=== PATIENT | female | born 1965 | race Caucasian/White ===

== ENCOUNTER 2017-09-18 09:46 | Emergency (ER) | payer OTHER ==
[~2017-09-18] VITALS: Ht 157.5 cm; Wt 52.2 kg
[2017-09-18] MEDS ORDERED: ALBUTEROL/IPRATROPIUM 3 ML NEB NEB ONE (10:30)
[2017-09-18] MEDS ORDERED: LORAZEPAM 1 MG TAB PO ONE (11:15)
== END 2017-09-18 12:27 | disposition home or self-care (01) ==
LOC: FSED 09:46
DX: R06.00 Dyspnea, unspecified (principal); R05 Cough; J44.9 Chronic obstructive pulmonary disease, unspecified; Z87.891 Personal history of nicotine dependence
CPT/HCPCS: 71046; 83880; 85025; 85379; 93005; 99284

== ENCOUNTER → 2017-10-26 | Outpatient (CLI) | payer OTHER ==
--- NOTE | 2017-10-27 10:42 | Cardiology Report ---
DATE OF STUDY: October 26, 2017 ECHOCARDIOGRAM M-MODE: Normal chamber wall dimensions. Normal contractility. Normal mitral and aortic valves. No pericardial effusion. SECTOR SCAN: Normal chamber wall dimensions. Normal contractility. Normal mitral, aortic and tricuspid valves. No pericardial effusion. CARDIAC DOPPLER STUDY WITH COLOR: Trace mitral and tricuspid regurgitation. CONCLUSIONS 1. Left ventricular ejection fraction is approximately 65%. 2. Trace mitral and tricuspid regurgitation. 3. No significant pulmonary hypertension with pulmonary artery systolic pressure estimated at 34 mmHg. Job#: [id number] cc:STACIE ELIZALDE MD
== END ==
LOC: RAD 15:00
PROVIDERS: ATTEND Internal Medicine
DX: R06.00 Dyspnea, unspecified (principal)
CPT/HCPCS: 93306

== ENCOUNTER 2018-09-13 20:40 | Emergency (ER) | payer OTHER ==
[~2018-09-13] VITALS: Ht 157.5 cm; Wt 51.9 kg
--- OUTSIDE RECORDS SUMMARY | 2018-09-13 20:43 | XMS REPORT ---
Author Author [facility] Address Unknown Phone Unavailable Care Team Providers Care Production Line Technician Name Role Phone STACIE ELIZALDE Unavailable Unavailable Problems This patient has no known problems. Allergies, Adverse Reactions, Alerts This patient has no known allergies or adverse reactions. Medications This patient has no known medications. Results Test Description Test Time Test Comments Text Results Atomic Results Result Comments ECHO COMPLETE (ECHOCARDIOGRAM) 2017-10-27 10:21:00 [facility] [address] [address] Patient Name : CHAKA BADILLO MR #: [id number] : 1965 Age/Sex: 52/F Adm Physician : STACIE ELIZALDE MD Admit Date : Location : [facility] Room/Bed : REPORT: Cardiology Report DATE OF STUDY: October 26, 2017 ECHOCARDIOGRAM M-MODE: Normal chamber wall dimensions. Normal contractility. Normal mitral and aortic valves. No pericardial effusion. SECTOR SCAN: Normal chamber wall dimensions. Normal contractility. Normal mitral, aortic and tricuspid valves. No pericardial effusion. CARDIAC DOPPLER STUDY WITH COLOR: Trace mitral and tricuspid regurgitation. CONCLUSIONS 1. Left ventricular ejection fraction is approximately 65%. 2. Trace mitral and tricuspid regurgitation. 3. No significant pulmonary hypertension with pulmonary artery systolic pressure estimated at 34 mmHg. Job#: [id number] cc: STACIE ELIZALDE MD Signature Date Dictated By: MELANIE LUCIO MD Transcribed By: ALBERTO on 10/27/17 <Electronically signed by MELANIE LUCIO MD><<Signature on File>>10/30/17 0921 COPY TO:
[2018-09-13] MEDS ORDERED: KETOROLAC TROMETHAMINE 60 MG/2 ML VIAL IM ONE (21:15)
[2018-09-13] MEDS ORDERED: KETOROLAC TROMETHAMINE 60 MG/2 ML VIAL ONE (21:17)
--- NOTE | 2018-09-13 21:32 | Diagnostic Imaging Report ---
WRIST 3VW LT - HOPD - 3 views HISTORY: Pain COMPARISON: None available. FINDINGS: See impression. IMPRESSION: Distal radial metaphyseal fracture with mild dorsal angulation. Nondisplaced ulnar styloid process fracture. Generalized demineralization. Signed by: Dr. Willi Denson MD on 09/13/2018 9:29 PM
--- NOTE | 2018-09-13 21:34 | NUR ---
wedding ring removed and given to patients spouse.
[2018-09-13] MEDS ORDERED: ONDANSETRON HCL 4 MG ORAL DISINTEGRATING TAB PO ONE (21:45)
[2018-09-13] MEDS ORDERED: MORPHINE SULFATE INJ 4 MG/ML INJ 1ML IM PRN (21:45)
[2018-09-13] MEDS ORDERED: HYDROCODONE/APAP 5MG-325MG TAB ONE (21:58)
[2018-09-13] MEDS ORDERED: HYDROCODONE/APAP 7.5MG-325MG 1 EA TAB PO PRN (22:00)
[2018-09-13] MEDS ORDERED: HYDROCODONE/APAP 10MG-325MG TAB PO ONE (22:00)
[2018-09-13 22:08] VITALS: BP 126/82
[2018-10-01] MEDS ORDERED: MULTI-VITAMIN1 EACH PO (11:33)
[2018-10-01] MEDS ORDERED: ALEVE220 MG PO (11:33)
[2018-10-01] MEDS ORDERED: VITAMIN D1000 UNI1 PO (11:33)
== END 2018-09-13 22:33 | disposition home or self-care (01) ==
LOC: FSED 20:40
DX: S52.335A Nondisplaced oblique fracture of shaft of left radius, initial encounter for closed fracture (principal); S52.615A Nondisplaced fracture of left ulna styloid process, initial encounter for closed fracture; S64.12XA Injury of median nerve at wrist and hand level of left arm, initial encounter; S64.495A Injury of digital nerve of left ring finger, initial encounter; S64.497A Injury of digital nerve of left little finger, initial encounter; W01.0XXA Fall on same level from slipping, tripping and stumbling without subsequent striking against object, initial encounter; Y93.51 Activity, roller skating (inline) and skateboarding; Y92.331 Roller skating rink as the place of occurrence of the external cause
CPT/HCPCS: 25605; 73110; 99283; J1885; Q0162

== ENCOUNTER → 2018-10-03 | Day surgery (SDC) | payer OTHER ==
--- NOTE | 2018-10-01 13:56 | Diagnostic Imaging Report ---
EXAMINATION: CHEST 2 VIEWS INDICATION: Pre-operative COMPARISON: None FINDINGS: LINES/TUBES:None LUNGS:The lungs are well-inflated. No focal consolidation or pulmonary edema. PLEURA:No pleural effusion or pneumothorax. MEDIASTINUM:The cardiomediastinal silhouette appears normal in size and shape. BONES/SOFT TISSUES:No acute osseous injury. ABDOMEN:No free air under the diaphragm. IMPRESSION: No focal pneumonia or pulmonary edema. Signed by: Minerva Garza MD on 10/01/2018 1:52 PM
[~2018-10-03] MED LIST: ALEVE220 MG PO; BACITRACIN 50,000 UNIT VIAL ONE; BUPIVACAINE HCL 0.5% INJ 30 ML VIAL INJ ONE; CEFAZOLIN SOD 1 GM/NS 50ML 100 ML IV ONE; DEXAMETHASONE SOD PHOS INJ 4 MG/ML VIAL ONE; FENTANYL CITRATE/PF 100MCG/2 ML INJ ONE; HYDROMORPHONE 2MG/ML 2 MG/ML ML ONE; KETOROLAC TROMETHAMINE 30 MG/ML VIAL ONE; LIDOCAINE HCL 2% LOCAL INJ 5 ML SDV VIAL INJ ONE; METOCLOPRAMIDE HCL 10 MG/2ML VIAL ONE; MIDAZOLAM HCL 2 MG/2 ML VIAL ONE; MULTI-VITAMIN1 EACH PO; ONDANSETRON HCL INJ 2MG/ML 2ML 2 MG/ML VIAL ONE; PROPOFOL IV EMULSION 10 MG/ML 20 ML VIAL ONE; SEVOFLURANE INHAL SOLN 250 ML PEN BTL ONE; VITAMIN D1000 UNI1 PO
--- NOTE | 2018-10-03 14:29 | NUR ---
OPERATIVE NOTE ORTHOPEDICS. PREOPERATIVE DIAGNOSIS: LEFT Displaced distal radius POSTOPERATIVE DIAGNOSIS: LEFT Displaced distal radius OPERATIONS PERFORMED: Open reduction and internal fixation of LEFT distal radius SURGEON: Idalia Carmona DO ANESTHESIA: General EBL: 10 cc TOURNIQUET TIME: 72 MIN COMPLICATIONS: None. COMPONENTS: Ronn Variax Distal Radius Plate - Left 3 hole narrow, 6 2.7 Locking Screws, 2 2.7 Cortical Screws CLINICAL SUMMARY: The patient is a 53-year-old right-hand dominant female who sustained a mechanical fall resulting in a fracture to the left distal radius and ulna. During non-operative follow up, it was noted that the wrist was healing in more dorsal angulation. OPERATION: The patient was brought to the operating table and placed in supine position and administered general anesthetic by the anesthesia. Preoperative antibiotics were provided. Once adequate anesthesia had been obtained, the LEFT upper extremity was prepped and draped in the usual sterile manner. The pat ient received preoperative antibiotics. Tourniquet was placed around the right upper extremity. The upper extremity was then elevated and exsanguinated using an Esmarch dressing. The tourniquet was elevated to 250 mmHg. The entire operation was performed with loop magnification. At this time an approximately 8 cm longitudinal incision was then made overlying the right flexor carpi radialis tendon from the flexion crease to the wrist proximally with a 45 degree radially directed incision distally. This was carried down to the flexor carpi radialis, which was then retracted ulnarly. The floor of the flexor carpi radialis sheath was then incised exposing the flexor pronator muscles. The flexor pollicis longus was retracted ulnarly and the remnants of the pronator quadratus was longitudinally incised 1 cm from its origin. It was then elevated off of the fracture site exposing the fracture site, which was dorsally displaced. This was an extra-articular fracture. Under image control, the fracture was recreated and carefully manipulated and reduced. The fracture ends were copiously irrigated with normal saline and curetted and then the fracture was reduced in the usual fashion by recreating the defect and distracting it. The above implants were then fashioned over and placed over the distal radius and secured with 4 K-wires. The distal portion of the fracture was first secured and the proximal portion was then secured allowing the fracture to reduce with the plate pulling the fracture out of dorsal angulation. Care was used to avoid intraarticular penetration while maintaining subchondral support which was verified via flouroscopy. Images were obtained and interpreted by me demonstrating adequate reduction of the fragments and the fracture with hardware in appropriate alignment. The incision was thoroughly irrigated and homeostasis was maintained with electrocautery. The volar carpal ligaments were repaired and the remnants of the pronator quadratus were repair. The subcut aneous tissue was closed with a 2-0 vicryl and the skin was closed with a 3-0 monocryl. The skin was cleaned and steristrips with xeroform were placed over the incision. Through the use of an angiocatch, 10 cc of local anesthetic was placed within the incision. 4x4, Cling were used and a short arm was placed over the arm. The patient was then placed in a sling. The tourniquet was let down at 204 minutes. The fingers were immediately pink. The patient was awakened and taken to the recovery room in good condition. There were no operative complications. The patient tolerated the procedure well. Post operatively, the patient was examined and found to be neurovascularly intact.
[2018-10-03 17:00] VITALS: BP 136/70
== END | disposition home or self-care (01) ==
LOC: OR 11:21
PROVIDERS: ATTEND Orthopaedic Surgery
DX: S52.552A Other extraarticular fracture of lower end of left radius, initial encounter for closed fracture (principal); I49.8 Other specified cardiac arrhythmias; X58.XXXA Exposure to other specified factors, initial encounter; Z88.2 Allergy status to sulfonamides; Z88.8 Allergy status to other drugs, medicaments and biological substances; Z01.810 Encounter for preprocedural cardiovascular examination; Z01.818 Encounter for other preprocedural examination; Z87.891 Personal history of nicotine dependence
CPT/HCPCS: 25607; 71046; 93005; C1713 ×5; J0690; J1100; J1170; J1885; J2001; J2250; J2405; J2704; J2765; J3010

== ENCOUNTER → 2018-11-19 | Outpatient (RCR) | payer OTHER ==
[~2018-11-19] MED LIST changes: -BACITRACIN 50,000 UNIT VIAL ONE; -BUPIVACAINE HCL 0.5% INJ 30 ML VIAL INJ ONE; -CEFAZOLIN SOD 1 GM/NS 50ML 100 ML IV ONE; -DEXAMETHASONE SOD PHOS INJ 4 MG/ML VIAL ONE; -FENTANYL CITRATE/PF 100MCG/2 ML INJ ONE; -HYDROMORPHONE 2MG/ML 2 MG/ML ML ONE; -KETOROLAC TROMETHAMINE 30 MG/ML VIAL ONE; -LIDOCAINE HCL 2% LOCAL INJ 5 ML SDV VIAL INJ ONE; -METOCLOPRAMIDE HCL 10 MG/2ML VIAL ONE; -MIDAZOLAM HCL 2 MG/2 ML VIAL ONE; -ONDANSETRON HCL INJ 2MG/ML 2ML 2 MG/ML VIAL ONE; -PROPOFOL IV EMULSION 10 MG/ML 20 ML VIAL ONE; -SEVOFLURANE INHAL SOLN 250 ML PEN BTL ONE
== END ==
LOC: OT 10-26 10:02
PROVIDERS: ATTEND Orthopaedic Surgery
DX: S52.502D Unspecified fracture of the lower end of left radius, subsequent encounter for closed fracture with routine healing (principal); M25.532 Pain in left wrist; M25.632 Stiffness of left wrist, not elsewhere classified; M25.642 Stiffness of left hand, not elsewhere classified; R53.1 Weakness

== ENCOUNTER 2018-12-10 12:56 | Outpatient (RCR) | payer OTHER | END 2018-12-20 | LOC: OT 12:56 | PROVIDERS: ATTEND Orthopaedic Surgery | DX: S52.502D Unspecified fracture of the lower end of left radius, subsequent encounter for closed fracture with routine healing (principal); M25.532 Pain in left wrist; M25.642 Stiffness of left hand, not elsewhere classified; M25.632 Stiffness of left wrist, not elsewhere classified; R53.1 Weakness ==

== ENCOUNTER 2019-01-14 09:00 | Outpatient (RCR) | payer OTHER | END 2019-01-19 | LOC: OT 09:00 | PROVIDERS: ATTEND Orthopaedic Surgery | DX: S52.592A Other fractures of lower end of left radius, initial encounter for closed fracture (principal) | CPT/HCPCS: 97139 ==

== ENCOUNTER 2019-12-20 13:48 | Emergency (ER) | payer OTHER ==
[~2019-12-20] VITALS: Ht 157.5 cm; Wt 56.7 kg
[2019-12-20] MEDS ORDERED: HYDROCODONE/APAP 5MG-325MG TAB ONE (15:07)
[2019-12-20] MEDS ORDERED: KETOROLAC TROMETHAMINE 60 MG/2 ML VIAL ONE (15:07)
[2019-12-20] MEDS ORDERED: KETOROLAC TROMETHAMINE 60 MG/2 ML VIAL IM ONE (15:15)
[2019-12-20] MEDS ORDERED: HYDROCODONE/APAP 5MG-325MG TAB PO ONE ×2 (15:15→15:45)
--- NOTE | 2019-12-20 16:27 | Diagnostic Imaging Report ---
Right ankle, 3 views. Right calcaneus, 2 views. History: Pain after trauma. Findings: There is mild lateral soft tissue swelling. Bone mineralization is normal. There is no evidence of fracture or dislocation. There are no lytic or sclerotic lesions. The joint spaces are within normal limits. IMPRESSION: Lateral soft tissue swelling without evidence of acute osseous abnormality. Signed by: Keshawn Romero on 12/20/2019 4:24 PM
[2019-12-20] MEDS ORDERED: PREDNISONE20 MG PO (16:40)
--- NOTE | 2019-12-20 16:41 | Emergency Department Note ---
History of Present Illnes History of Present Illness Chief Complaint: rgt ankle/heel pain s/p kicking a fence History of Present Illness This is a 54 year old female . was doing well prior to this. 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 History limited by: condition of the patient (normal) Pulp Grinder Required: No Onset (how long ago): hour(s) (3) Location: see above Quality: sharp Radiation: Reports non-radiation Severity: severe Onset quality: sudden Duration (how long): hour(s) (3) Timing of current episode: constant Progression: worsening Chronicity: new Context: Reports trauma/injury; Denies recent illness Relieving factors: none Exacerbating factors: movement Associated symptoms: Reports denies other symptoms Treatments prior to arrival: none Past Medical/Family History Physician Review I have reviewed the patient's past medical and family history. Any updates have been documented here. Past Medical History Recent Fever: No Clinical Suspicion of Infectio: No New/Unexplained Change in Ment: No Past Medical History: None Past Surgical History: T&A Other Surgery: left wrist surgery novasure ablation Social History Smoking Cessation: Former smoker Counseling Performed: No Alcohol Use: Occasional Any Illegal Drug Use: No Physically hurt or threatened: No Other Last Tetanus: unknown Any Pre-Existing Lines (PICC,: No Review of Systems Review of Systems Constitutional: Reports no symptoms EENTM: Reports no symptoms Cardiovascular: Reports no symptoms Respiratory: Reports no symptoms Gastrointestinal: Reports no symptoms Genitourinary: Reports no symptoms Musculoskeletal: Reports as per HPI Integumentary: Reports no symptoms Neurological: Reports no symptoms Psychological: Reports no symptoms Endocrine: Reports no symptoms Hematological/Lymphatic: Reports no symptoms Review of other systems: All other systems negative Physical Exam Related Data Allergies: Coded Allergies: Sulfa (Sulfonamide Antibiotics) (Verified Allergy, Unknown, N/V, 09/18/17) progesterone (Verified Allergy, Unknown, "autistic state", 09/18/17) Uncoded Allergies: STATINS (Allergy, Severe, UTI'S, LEG MUSCLES WEAKNESS, 10/01/18) Triage Vital Signs Vital Signs Date Time Temp Pulse Resp B/P (MAP) Pulse Ox O2 Delivery O2 Flow Rate FiO2 12/20/19 14:15 98.6 68 18 145/88 100 Room Air Vital signs reviewed: Yes Physical Exam CONSTITUTIONAL Constitutional: Present well-developed, Present well-nourished HENT HENT: Present normocephalic, Present atraumatic, Present oropharynx clear/m oist, Present nose normal HENT L/R: Present left ext ear normal, Present right ext ear normal EYES Eyes: Reports PERRL, Reports conjunctivae normal NECK Neck: Present ROM normal PULMONARY Pulmonary: Present effort normal, Present breath sounds normal CARDIOVASCULAR Cardiovascular: Present regular rhythm, Present heart sounds normal, Present capillary refill normal, Present normal rate GASTROINTESTINAL Abdominal: Present soft, Present nontender, Present bowel sounds normal GENITOURINARY Genitourinary: Present exam deferred SKIN Skin: Present warm, Present dry MUSCULOSKELETAL Musculoskeletal: Present ROM normal, Present tenderness (rgt heel/ankle tenderness/swelling), Present swelling, Present other (decrease farom +nvi) NEUROLOGICAL Neurological: Present alert, Present oriented x 3, Present no gross motor or sensory deficits PSYCHOLOGICAL Psychological: Present mood/affect normal, Present judgement normal Results Imaging Imaging results reviewed: Yes [address] [address] Patient Name: CHAKA BADILLO MR #: [id number] : 1965 Age/Sex: 54/F Req #: [id number] Adm Physician: Ordered by: TOBIAS SHARMA Report #: [id number] Location: [facility] Room/Bed: Procedure: [id number] HOPD/ANKLE 3 VIEW RT - HOPD Exam Date: 12/20/19 Exam Time: 1532 REPORT STATUS: Signed Right ankle, 3 views. Right calcaneus, 2 views. History: Pain after trauma. Findings: There is mild lateral soft tissue swelling. Bone mineralization is normal. There is no evidence of fracture or dislocation. There are no lytic or sclerotic lesions. The joint spaces are within normal limits. IMPRESSION: Lateral soft tissue swelling without evidence of acute osseous abnormality. Signed by: Namita Rmoero on 12/20/2019 4:24 PM Dictated By: NAMITA ROMERO MD 23 Transcribed By: DERRICK on 12/20/191623 COPY TO: TOBIAS SHARMA~ Assessment & Plan Medical Decision Making MDM see below Assessment & Plan Final Impression: (1) Ankle sprain (2) Contusion of heel Depart Disposition: HOME, SELF-CARE Last Vital Signs Date Time Temp Pulse Resp B/P (MAP) Pulse Ox O2 Delivery O2 Flow Rate FiO2 12/20/19 14:15 98.6 68 18 145/88 100 Room Air Home Meds Active Scripts Prednisone (PREDNISONE) 20 Mg Tab, 60 MG PO DAILY, #18 TAB take all 3 20 mg pills at once Prov:TOBIAS SHARMA 12/20/19 Reported Medications Multivitamin (MULTI-VITAMIN DAILY) 1 Each Tablet, 1 TAB PO DAILY 10/01/18 Cholecalciferol (Vitamin D3) (VITAMIN D) 1,000 Unit Tablet, 2000 UNITS PO DAILY, #30 TAB 10/01/18 Naproxen Sodium (ALEVE) 220 Mg Tablet, 1 TAB PO DAILY PRN for Mild Pain (1-3) or Fever>100.8 10/01/18 Medications in the ED Ketorolac Tromethamine 60 mg STK-MED ONCE .ROUTE ; Start 12/20/19 at 15:07; Stop 12/20/19 at 15:00; Status DC Acetaminophen/ Hydrocodone Bitart 1 ea STK-MED ONCE .ROUTE ; Start 12/20/19 at 15:07; Stop 12/20/19 at 15:00; Status DC Ketorolac Tromethamine 60 mg ONCE ONCE IM Last administered on 12/20/19at 15:15; Admin Dose 60 MG; Start 12/20/19 at 15:15; Stop 12/20/19 at 15:16; Status DC Acetaminophen/ Hydrocodone Bitart 1 ea ONCE ONCE PO Last administered on 12/20/19at 15:15; Admin Dose 1 EA; Start 12/20/19 at 15:15; Stop 12/20/19 at 15:16; Status DC Acetaminophen/ Hydrocodone Bitart 1 ea ONCE ONCE PO ; Start 12/20/19 at 15:45; Stop 12/20/19 at 15:54; Status DC TOBIAS SHARMA Dec 20, 2019 16:41
--- NOTE | 2019-12-20 17:00 | NUR ---
Pt states that she already has crutches at home and does not need them here.
[2019-12-20 17:30] VITALS: BP 109/68
--- OUTSIDE RECORDS SUMMARY | 2019-12-26 18:02 | XMS REPORT | Continuity of Care Document ---
Author Author [facility] t Organization [facility] Address [address] [place] [address] Phone Unavailable Care Team Providers Care Commercial Pest Control Technician Name Role Phone STACIE ELIZALDE MD PCP Mikayla SHARMA Attphys Unavailable Iva HERRERA Attphys Unavailable WILLEM GIRARD Attphys Unavailable STACIE ELIZALDE Attphyisela Unavailable Payers Payer Name Policy Type Policy Number Effective Date Expiration Date Isela [facility]cgovern [id number] 2017 00:00:00 [facility] Cigna o [id number] 2018 00:00:00 2019 00:0 0:00 [facility] Problems This patient has no known problems. Allergies, Adverse Reactions, Alerts Allergy Name Allergy Type Status Severity Reaction(s) Onset Date Inacti ve Date Treating Clinician Comments Source STATINS Allergy to Substance Active Severe UTI'S, LEG MUSC LES WEAKNESS 2018-10-01 00:00:00 [facility] Sulfa (Sulfonamide Antibiotics) Allergy to Substance Active N/V 2017-09-18 00:00:00 [facility] Progesterone Allergy to Substance Active "autistic state" 2017-09-18 00:00:00 [facility] Medications Ordered Medication Name Filled Medication Name Start Date Stop Da te Current Medication? Ordering Clinician Indication Dosage Frequency Signature (SIG) Comments Components Source Cholecalciferol (Vitamin D3) (Vitamin D) 1,000 Unit Ta blet Cholecalciferol (Vitamin D3) (Vitamin D) 1,000 Unit Tablet Yes 2000 Daily [facility] Multivitamin (Multi-Vitamin Daily) 1 Each Tablet Multi vitamin (Multi-Vitamin Daily) 1 Each Tablet Yes 1 Daily [facility] Naproxen Sodium (Aleve) 220 Mg Tablet Naproxen Sodium (Aleve) 220 M g Tablet Yes 1 Daily as needed for Mild Pain (1-3) Or F ever>100.8 [facility] Procedures Procedure Date / Time Performed Performing Clinician Elizabet e TREAT FX RAD EXTRA-ARTICUL 2018-10-03 00:00:00 DOMINGA HERRERA [facility] X-ray of chest, two views 2018-10-01 00:00:00 DOMINGA HERRERA [facility] TREAT FRACTURE RADIUS/ULNA 2018-09-13 00:00:00 WILLEM GIRARD [facility] Encounters Start Date/Time End Date/Time [facility] ID Source 2019-01-24 08:51:00 2019-02-19 23:59:00 Discharged Recurring [facility] [id number] [facility] 2018-12-24 09:02:00 2019-01-19 23:59:00 Discharged Recurring [facility] [id number] [facility] 2018-11-21 14:55:00 2018-12-20 23:59:00 Discharged Recurring [facility] [id number] [facility] 2018-10-26 10:02:00 2018-11-19 23:59:00 Discharged Recurring [facility] [id number] [facility] 2018-10-03 11:21:00 2018-10-03 11:21:00 Registered Surgical Day Car e 3 DOMINGA HERRERA [facility] [id number] [facility] 2018-09-13 20:40:00 2018-09-13 22:33:00 Departed Emergency Room 1 GIRARDWILLEM [facility] [id number] [facility] 2017-09-18 09:46:00 2017-09-18 12:27:00 Departed Emergency Room [facility] [id number] [facility] Results Test Description Test Time Test Comments Results Result Comments Source CALCANEUS 2 VIEW RT - HOPD 2019-12-20 16:22:00 [facility] : 1965 Sex: F [facility] [address] [address] Patient Name: CHAKA BADILLO MR #: [id number] : 1965 Age/Sex: 54/F Req #: [id number] [facility] Physician: Ordered by: TOBIAS SHARMA Report #: [id number] Location: [facility] Room/Bed: Procedure: [id number] HOPD/CALCANEUS 2 VIEW RT - HOPD Exam Date: 12/20/19 Exam Time: 1533 REPORT STATUS: Signed Right ankle, 3 views. Right calcaneus, 2 views. History: Pain after trauma. Findings: There is mild lateral soft tissue swelling. Bone mineralization is normal. There is no evidence of fracture or dislocation. There are no lytic or sclerotic lesions. The joint spaces are within normal limits. IMPRESSION: Lateral soft tissue swelling without evidence of acute osseous abnormality. Signed by: Keshawn Romero on 12/20/2019 4:24 PM Dictated By: KESHAWN ROMERO MD 23 Transcribed By: DERRICK on 12/20/191623 COPY TO: TOBIAS SHARMA ANKLE 3 VIEW RT - HOPD 2019-12-20 16:22:00 [facility] 1965 Sex: F [address] [address] Patient Name: CHAKA BADILLO MR #: [id number] : 1965 Age/Sex: 54/F Req #: [id number] [facility] Physician: Ordered by: TOBIAS SHARMA Report #: [id number] Location: [facility] Room/Bed: Procedure: [id number] HOPD/ANKLE 3 VIEW RT - HOPD Exam Date: 12/20/19 Exam Time: 1533 REPORT STATUS: Signed Right ankle, 3 views. Right calcaneus, 2 views. History: Pain after trauma. Findings: There is mild lateral soft tissue swelling. Bone mineralization is normal. There is no evidence of fracture or dislocation. There are no lytic or sclerotic lesions. The joint spaces are within normal limits. IMPRESSION: Lateral soft tissue swelling without evidence of acute osseous abnormality. Signed by: Keshawn Romero on 12/20/2019 4:24 PM Dictated By: KESHAWN ROMERO MD 23 Transcribed By: DERRICK on 12/20/191623 COPY TO: TOBIAS SHARMA CHEST 2 VIEWS 2018-10-01 13:52:00 [address] [address] Patient Name: CHAKA BADILLO MR #: [id number] : 1965 Age/Sex: 53/F Req #: [id number] Adm Physician: Ordered by: DOMINGA HERRERA DO Report #: [id number] Location: OR Room/Bed: Procedure: [id number] DX/CHEST 2 VIEWS Exam Date: 10/01/18 Exam Time: 1209 REPORT STATUS: Signed EXAMINATION: CHEST 2 VIEWS INDICATION: Pre-operative COMPARISON: None FINDINGS: LINES/TUBES:None LUNGS:The lungs are well-inflated. No focal consolidation or pulmonary edema. PLEURA:No pleural effusion or pneumothorax. MEDIASTINUM:The cardiomediastinal silhouette appears normal in size and shape. BONES/SOFT TISSUES:No acute osseous injury. ABDOMEN:No free air under the diaphragm. IMPRESSION: No focal pneumonia or pulmonary edema. Signed by: Robby Padilla MD on 10/01/2018 1:52 PM Dictated By: ROBBY PADILLA MD 135 Transcribed By: DERRICK on 10/01/18 135 COPY TO: DOMINGA HERRERA DO WRIST 3VW LT - HOPD 2018-09-13 21:24:00 [facility] [address] [address] Patient Name: CHAKA BADILLO MR #: [id number] : 1965 Age/Sex: 53/F Req #: [id number] Adm Physician: Ordered by: WILLEM GIRARD MD Report #: [id number] Location: [facility] Room/Bed: Procedure: [id number] HOPD/WRIST 3VW LT - HOPD Exam Date: 09/13/18 Exam Time: 2109 REPORT STATUS: Signed WRIST 3VW LT - HOPD - 3 views HISTORY: Pain COMPARISON: None available. FINDINGS: See impression. IMPRESSION: Distal radial metaphyseal fracture with mild dorsal angulation. Nondisplaced ulnar styloid process fracture. Generalized demineralization. Signed by: Dr. Willi Love MD on 09/13/2018 9:29 PM Dictated By: WILLI LOVE MD 28 Transcribed By: DERRICK on 09/13/182128 COPY TO: WILLEM GIRARD MD ECHO COMPLETE (ECHOCARDIOGRAM) 2017-10-27 10:21:[address] [address] Patient Name : CHAKA BADILLO MR #: [id number] : 1965 Age/Sex: 52/F Adm Physician : STACIE ELIZALDE MD Admit Date : Location : RAD Room/Bed : REPORT: Cardiology Report DATE OF [...] systolic pressure estimated at 34 mmHg. Job#: [id number] cc: STACIE ELIZALDE MD Signature Date Dictated By: MELANIE LUCIO MD Transcribed By: EDS on 10/27/17 <Electronically signed by MELANIE LUCIO MD><<Signature on File>>10/30/17 0921 COPY TO:
== END 2019-12-20 17:20 | disposition home or self-care (01) ==
LOC: FSED 14:02
DX: S93.401A Sprain of unspecified ligament of right ankle, initial encounter (principal); S90.31XA Contusion of right foot, initial encounter; W22.09XA Striking against other stationary object, initial encounter
CPT/HCPCS: 73610; 73650; 96372; 99283; J1885

== ENCOUNTER → 2021-10-20 | Day surgery (SDC) | payer OTHER ==
[~2021-10-20] MED LIST changes: +COLACE100 MG/10 PO; +FENTANYL CITRATE/PF 100MCG/2 ML INJ ONE; +GLUCAGON FOR INJ 1 MG VIAL ONE; +LIDOCAINE HCL 2% LOCAL INJ 5 ML SDV VIAL INJ ONE; +METOCLOPRAMIDE HCL 10 MG/2ML VIAL ONE; +MIDAZOLAM HCL 2 MG/2 ML VIAL ONE; +NALTREXONE HCL50 MG PO; +PREDNISONE20 MG PO; +PROPOFOL IV EMULSION 10 MG/ML 20 ML VIAL ONE
[2021-10-20 16:00] VITALS: BP 114/75
== END | disposition home or self-care (01) ==
LOC: OR 11:53
PROVIDERS: ATTEND Internal Medicine Gastroenterology
DX: Z12.11 Encounter for screening for malignant neoplasm of colon (principal); D12.3 Benign neoplasm of transverse colon; K29.80 Duodenitis without bleeding; K29.50 Unspecified chronic gastritis without bleeding; K20.90 Esophagitis, unspecified without bleeding; K21.9 Gastro-esophageal reflux disease without esophagitis; K31.89 Other diseases of stomach and duodenum; K59.09 Other constipation; K57.30 Diverticulosis of large intestine without perforation or abscess without bleeding; K64.8 Other hemorrhoids; E06.3 Autoimmune thyroiditis; R06.02 Shortness of breath; J34.2 Deviated nasal septum; E78.5 Hyperlipidemia, unspecified; R00.1 Bradycardia, unspecified; F41.9 Anxiety disorder, unspecified; Z88.2 Allergy status to sulfonamides; Z88.8 Allergy status to other drugs, medicaments and biological substances; Z01.810 Encounter for preprocedural cardiovascular examination; Z01.812 Encounter for preprocedural laboratory examination; Z20.822 Contact with and (suspected) exposure to COVID-19; Z79.899 Other long term (current) drug therapy; Z87.891 Personal history of nicotine dependence; Z80.0 Family history of malignant neoplasm of digestive organs
CPT/HCPCS: 0223U; 36415; 43239; 43450; 45385; 93005; C9113; J1610; J2001; J2250; J2704; J2765; J3010; 45378; 45380